=== PATIENT | male | born 1960 | race Caucasian/White ===

== ENCOUNTER 2019-02-05 12:27 | Emergency (ER) | payer OTHER ==
[~2019-02-05] VITALS: Ht 170.2 cm; Wt 120.0 kg
[2019-02-05 14:02] VITALS: BP 122/71
== END 2019-02-05 15:05 | disposition home or self-care (01) ==
LOC: ED 14:43
DX: I48.0 Paroxysmal atrial fibrillation (principal); Z86.718 Personal history of other venous thrombosis and embolism
CPT/HCPCS: 36415; 71045; 80048; 82040; 84484; 85025; 93005; 99284